=== PATIENT | female | born 1985 | race Caucasian/White ===

== ENCOUNTER 2016-12-14 21:43 | Inpatient (IN) | payer MEDICAID ==
[~2016-12-14] VITALS: Ht 157.5 cm; Wt 81.6 kg
[~2016-12-14 21:43] MED LIST: PREN1TAB62 PO
[2016-12-14 22:06] VITALS: Ht 157.5 cm; Wt 81.6 kg
[2016-12-14] MEDS ORDERED: LACTATED RINGER'S 1,000 ML IV STA (22:06)
[2016-12-14 22:44] LABS: ADD SCAN DIFF NO
[2016-12-14 22:49] LABS: BASOPHILS % 0.2 % (0.0-2.0); EOSINOPHILS % 0.3 % (0.0-7.0); HEMATOCRIT 36.1 % (37.0-47.0); HEMOGLOBIN 11.9 g/dl (12.0-16.0); LYMPHOCYTES # 0.9 10^3/ul (0.8-2.9); LYMPHOCYTES % 9.6 % (15.0-51.0); MEAN CORPUSCULAR HEMOGLOBIN 27.6 pg (29.0-33.0); MEAN CORPUSCULAR VOLUME 83.8 fl (82.0-101.0); MEAN PLATELET VOLUME 10.2 fl (7.4-10.4); MONOCYTE # 0.6 10^3/ul (0.3-0.9); MONOCYTES % 6.2 % (0.0-11.0); NEUTROPHIL # 7.9 10^3/ul (1.6-7.5); NEUTROPHILS % 82.9 % (39.0-77.0); PLATELET COUNT 185 10^3/UL (140-415); RED BLOOD COUNT 4.31 10^6/ul (4.20-5.40); RED CELL DISTRIBUTION WIDTH 13.3 % (11.5-14.5); WHITE BLOOD COUNT 9.5 10^3/ul (4.8-10.8)
[2016-12-14 22:57] LABS: ADD UMIC YES; URINE BILIRUBIN (Dip) NEGATIVE (NEGATIVE); URINE BLOOD (Dip) NEGATIVE (NEGATIVE); URINE COLOR YELLOW (YELLOW); URINE GLUCOSE (Dip) NEGATIVE (NEGATIVE); URINE KETONES (Dip) NEGATIVE (NEGATIVE); URINE LEUKOCYTE ESTERASE (Dip) NEGATIVE (NEGATIVE); URINE NITRITE (Dip) NEGATIVE (NEGATIVE); URINE TOTAL PROTEIN (Dip) 1+ (NEGATIVE); URINE UROBILINOGEN (Dip) 0.2 E.U./dL (0.1-1.0)
[2016-12-14 23:05] LABS: BACTERIA,URINE FEW; SQUAMOUS EPITHELIAL CELL,UR MODERATE; URINE RBCS 0-2 /HPF (0)
[2016-12-14 23:07] LABS: ALBUMIN 3.8 g/dl (3.3-4.9); BILIRUBIN,INDIRECT 0.1 mg/dl (0-1.1); BILIRUBIN,TOTAL 0.1 mg/dl (0.2-1.3); CALCIUM 9.3 mg/dl (8.4-10.2); CREATININE 0.48 mg/dl (0.44-1.00); POTASSIUM 3.2 mmol/L (3.5-5.1); TOTAL PROTEIN 7.6 g/dl (6.1-8.1)
[2016-12-14 23:15] VITALS: BP 141/87; PULSE 120; RESP 18
[2016-12-14] MEDS ORDERED: LACTATED RINGER'S 1,000 ML IV SCH (23:15)
--- NOTE | 2016-12-14 23:30 | RADRPT ---
PROCEDURE: ULTRASOUND OBSTETRICAL CLINICAL INDICATION: 31-year-old female in labor for size and date determination. TECHNIQUE: Multiple sonographic images of the pelvis were obtained. The images were reviewed on a PACS workstation. COMPARISON: No prior studies are available for comparison. FINDINGS: The cervix is closed with a length of 3.6 cm measured transvaginally. There is a single viable intra uterine gestation. Cardiac activity is present with 157 beats per minute. There is a variable prese ntation. Measurements were made in order to determine age. The results are as follows: BPD = 6.15 cm, HC = 21.29 cm, AC = 22.96 cm, FL = 4.45 cm. This yields and estimated gestational ag e of approximately 25 weeks 1 day. The estimated date of delivery is March 28, 2017. The EFW = 862 +/- 129 g (1 lb 14 oz). The GP is 72%. The placenta is right lateral. There is no evidence for an abruption or placenta previa. There is an adequate amount of amniotic fluid with a maximal vertical pocket of 7.5 cm. IMPRESSION: 1. Single viable intrauterine gestation of approximately 25 weeks 1 day. The estimated date of del connor is March 28, 2017. 2. The cervix appears closed with a length of 3.6 cm. .Agapito Chavarria MD, Date Time Electronically viewed and signed by .Agapito Chavarria MD, on 12/14/2016 23:29 .M/
[2016-12-15] MEDS ORDERED: ACETAMINOPHEN 325 MG TAB PO PRN (01:00)
--- NOTE | 2016-12-15 01:22 | HP ---
Date/Time of Note Date/Time of Note DATE: 12/15/16 TIME: : OB - History Hx of Present Chief Complaint: abdominal pain Estimated Due Date: Mar 28, 2017 : 4 Para: 3 Spontaneous : 0 Therapeutic : 0 Care: Good Care Ultrasounds: Normal mid trimester US Obstetrical Complications: None Medical Complications: None Past Family/Social History * Past Medical, Surgical, Family and Obstetric Histories reviewed from chart. OB Admission Exam Vital Signs Vital Signs Vital Signs Date Time Temp Pulse Resp B/P Pulse Ox O2 Delivery O2 Flow Rate FiO2 12/14/16 23:15 97.6 120 18 141/87 Room Air Physical Exam HEENT: WNL Heart: Rhythm Normal Lungs: Clear Abdomen: WNL Extremities: Normal Reflexes: Normal Cervical Dilatation: None Membranes: Intact Heart Rate: 140's Decelerations: No Decelerations Last 72 hours Lab Results CBC & BMP 12/14/16 22:05 Liver Function Test 12/14/16 22:05 Alanine Aminotransferase (ALT/SGPT) 27 Albumin 3.8 Alkaline Phosphatase 123 H Aspartate Amino Transf (AST/SGOT) 25 Direct Bilirubin 0.00 Total Protein 7.6 OB Assessment/Plan Reason for admission: other (R/O preeclampsia) Plan: Other (Admit, 24 hour urine collection monitor BP.) JOSÉ CASTELLON MD Dec 15, 2016 01:22
[2016-12-15] MEDS: LACTATED RINGER'S 1,000 ML IV SCH ×3 (06:08→22:06)
[2016-12-15] MEDS: MULTIVIT/MIN/FOLATE/IRON/PREN TAB PO SCH (09:05)
[2016-12-16 02:21] LABS: SCRET 0.48 mg/dl (0.44-1.00)
[2016-12-16] MEDS: LACTATED RINGER'S 1,000 ML IV SCH ×2 (06:06→13:21)
[2016-12-16] MEDS: MULTIVIT/MIN/FOLATE/IRON/PREN TAB PO SCH (10:02)
--- NOTE | 2016-12-16 14:41 | CONS ---
DATE OF ADMISSION: 12/15/2016 DATE OF CONSULTATION: 12/16/2016 I spoke to the patient, she has been admitted with apparently worsening of her chronic hypertension. Her blood pressures during the hospital stay have not been in the severe range, but they range in the moderate. She denies headache, chest pain, shortness of breath, or change in the vision. She w as diagnosed with chronic hypertension since her last and her last she delivered at term. Platelets, creatinine, AST, ALT are normal. A 24-hour urine for protein shows 480 mg of protein. heart tone is reassuring for the gestational age. There are no contractions. IMPRESSION: Intrauterine with chronic hypertension and superimposed mild preeclampsia giv en the change in the total protein. She is stable and no symptoms. RECOMMENDATIONS: She can be discharged home with bed rest. She has an appointment to come and see us in 2 weeks. I do recommend BPP starting at 28 weeks and then NST twice weekly at 32 weeks, and p reeclampsia precautions are advised. Dictated By: LETICIA NUGENT/SOPHIA Conf#: [id number] DID#: [id number]
--- NOTE | 2016-12-16 18:55 | QN ---
Documentation Comment No complaint Afebrile BP Systolic 150's-170's Strip appropriate for GA Since patient's BP is elevated, will continue to monitor in hospital for now. JOSÉ CASTELLON MD Dec 16, 2016 18:55
[2016-12-17 07:17] LABS: ADD SCAN DIFF NO
[2016-12-17 07:21] LABS: BASOPHILS % 0.3 % (0.0-2.0); EOSINOPHILS # 0.1 10^3/ul (0.0-0.5); EOSINOPHILS % 0.8 % (0.0-7.0); HEMOGLOBIN 9.8 g/dl (12.0-16.0); LYMPHOCYTES # 1.9 10^3/ul (0.8-2.9); MEAN CORPUSCULAR HEMOGLOBIN 27.5 pg (29.0-33.0); MEAN CORPUSCULAR HGB CONC 32.7 g/dl (32.0-37.0); MEAN CORPUSCULAR VOLUME 84.3 fl (82.0-101.0); MEAN PLATELET VOLUME 10.5 fl (7.4-10.4); MONOCYTE # 0.4 10^3/ul (0.3-0.9); MONOCYTES % 6.5 % (0.0-11.0); NEUTROPHIL # 3.9 10^3/ul (1.6-7.5); NEUTROPHILS % 61.9 % (39.0-77.0); PLATELET COUNT 168 10^3/UL (140-415); RED BLOOD COUNT 3.56 10^6/ul (4.20-5.40); RED CELL DISTRIBUTION WIDTH 13.7 % (11.5-14.5); WHITE BLOOD COUNT 6.3 10^3/ul (4.8-10.8)
[2016-12-17 07:35] LABS: ALBUMIN 2.9 g/dl (3.3-4.9); ALBUMIN/GLOBULIN RATIO 1.03; CALCIUM 8.6 mg/dl (8.4-10.2); CREATININE 0.47 mg/dl (0.44-1.00); POTASSIUM 3.1 mmol/L (3.5-5.1); TOTAL PROTEIN 5.7 g/dl (6.1-8.1); URIC ACID 3.7 mg/dl (3.1-7.9)
[2016-12-17] MEDS: MULTIVIT/MIN/FOLATE/IRON/PREN TAB PO SCH (08:55)
[2016-12-17 11:56] LABS: ADD UMIC NO; URINE BILIRUBIN (Dip) NEGATIVE (NEGATIVE); URINE BLOOD (Dip) NEGATIVE (NEGATIVE); URINE COLOR LT. YELLOW (YELLOW); URINE GLUCOSE (Dip) NEGATIVE (NEGATIVE); URINE KETONES (Dip) NEGATIVE (NEGATIVE); URINE LEUKOCYTE ESTERASE (Dip) NEGATIVE (NEGATIVE); URINE NITRITE (Dip) NEGATIVE (NEGATIVE); URINE TOTAL PROTEIN (Dip) NEGATIVE (NEGATIVE); URINE UROBILINOGEN (Dip) 0.2 E.U./dL (0.1-1.0)
--- NOTE | 2016-12-18 06:28 | DS ---
DATE OF ADMISSION: 12/15/2016 DATE OF DISCHARGE: 12/17/2016 ADMITTING DIAGNOSIS: at 25 weeks, chronic hypertension, rule out preeclampsia. HISTORY: A 31-year-old female 4, para 2-1-0-3, estimated date of delivery 03/28/2017, ____ was admitted due to increasing blood pressure. Patient with history of chronic hypertension; pati burton, the patient's blood pressure was noted to be increasing. The patient was admitted on 12/15/2016. The patient had workup with -induced hypertension panel and 24-hour urine collection. Th e results of the 24-hour urine collection total protein was elevated. Perinatology consultation was obtained. Recommendation of perinatologist was to discharge the patient home since the patient has mild preeclampsia. The patient is discharged on 12/17/2013. CONDITION ON DISCHARGE: Stable. DISCHARGE INSTRUCTIONS: Diet regular. Activities as tolerated. MEDICATIONS: Continue with vitamins and ferrous sulfate. FOLLOWUP: In the office in 3 days. FINAL DIAGNOSES: 1. , not delivered. 2. Chronic hypertension. 3. Superimposed preeclampsia. Dictated By: JOSÉ CANALES/SOPHIA Conf#: [id number] DID#: [id number]
== END 2016-12-17 19:43 | disposition home or self-care (01) | DRG 781 ==
LOC: OBT 21:43 → L-D 21:44 → OBT 12-15 01:05 → OBG 12-15 01:05
PROVIDERS: ADMIT Obstetrics & Gynecology; ATTEND Obstetrics & Gynecology
DX: O11.2 Pre-existing hypertension with pre-eclampsia, second trimester (principal); Z3A.25 25 weeks gestation of pregnancy
CPT/HCPCS: 36415; 76815; 76817; 80053; 81001; 81003; 82150; 82575; 83690; 84156; 84560; 85025; 96360; 96361; G0463; J7120

== ENCOUNTER 2017-02-10 12:19 | Inpatient (IN) | payer MEDICAID ==
[~2017-02-10] VITALS: Ht 154.9 cm; Wt 86.2 kg
[2017-02-10 12:42] VITALS: Ht 154.9 cm; Wt 86.2 kg
[2017-02-10 12:43] VITALS: BP 171/82; PULSE 93
[2017-02-10] MEDS ORDERED: LACTATED RINGER'S 1,000 ML IV SCH (13:19)
[2017-02-10 13:52] LABS: ADD UMIC YES; UR ASCORBIC ACID 20 mg/dL (NEGATIVE); UR BACTERIA FEW /HPF (NONE SEEN); UR BILIRUBIN (Dip) NEGATIVE (NEGATIVE); UR BLOOD (Dip) NEGATIVE (NEGATIVE); UR CLARITY SLIGHTLY CLOUDY (CLEAR); UR COLOR YELLOW (YELLOW); UR GLUCOSE (Dip) NEGATIVE (NEGATIVE); UR KETONES (Dip) NEGATIVE (NEGATIVE); UR LEUKOCYTE ESTERASE (Dip) TRACE Leu/ul (NEGATIVE); UR NITRITE (Dip) NEGATIVE (NEGATIVE); UR RBC 0 /HPF (0-5); UR TOTAL PROTEIN (Dip) NEGATIVE (NEGATIVE); UR UROBILINOGEN (Dip) NEGATIVE (NEGATIVE)
[2017-02-10] MEDS ORDERED: GLUCOSE GEL 15 GRAM TUBE PO PRN ×2 (14:30)
[2017-02-10] MEDS ORDERED: DEXTROSE 50% 50 ML SYRINGE IV PRN ×2 (14:30)
[2017-02-10] MEDS ORDERED: GLUCAGON 1 MG INJ IM PRN (14:30)
[2017-02-10] MEDS ORDERED: GLUCOSE GEL 15 GRAM TUBE BUCCAL PRN (14:30)
[2017-02-10 14:57] LABS: ADD SCAN DIFF NO
[2017-02-10 15:01] LABS: BASOPHILS % 0.2 % (0.0-2.0); EOSINOPHILS # 0.1 10^3/ul (0.0-0.5); EOSINOPHILS % 0.6 % (0.0-7.0); HEMOGLOBIN 10.6 g/dl (12.0-16.0); LYMPHOCYTES # 1.9 10^3/ul (0.8-2.9); LYMPHOCYTES % 19.3 % (15.0-51.0); MEAN CORPUSCULAR HGB CONC 34.2 g/dl (32.0-37.0); MEAN PLATELET VOLUME 10.9 fl (7.4-10.4); MONOCYTE # 0.6 10^3/ul (0.3-0.9); MONOCYTES % 6.3 % (0.0-11.0); NEUTROPHIL # 7.2 10^3/ul (1.6-7.5); NEUTROPHILS % 72.8 % (39.0-77.0); PLATELET COUNT 182 10^3/UL (140-415); RED BLOOD COUNT 3.78 10^6/ul (4.20-5.40); RED CELL DISTRIBUTION WIDTH 14.2 % (11.5-14.5)
[2017-02-10 15:19] LABS: INR 0.91; PROTIME 12.3 Sec (12.2-14.2)
[2017-02-10 15:20] LABS: PARTIAL THROMBOPLASTIN TIME 27.1 Sec (25.0-35.0)
[2017-02-10 15:21] LABS: ALBUMIN 3.8 g/dl (3.3-4.9); ALBUMIN/GLOBULIN RATIO 1.26; BILIRUBIN,INDIRECT 0.1 mg/dl (0-1.1); BILIRUBIN,TOTAL 0.1 mg/dl (0.2-1.3); CALCIUM 9.6 mg/dl (8.4-10.2); CREATININE 0.5 mg/dl (0.44-1.00); POTASSIUM 3.6 mmol/L (3.5-5.1); TOTAL PROTEIN 6.8 g/dl (6.1-8.1); URIC ACID 4.6 mg/dl (3.1-7.9)
--- NOTE | 2017-02-10 19:55 | HP ---
DATE OF ADMISSION: 02/10/2017 HISTORY OF PRESENT ILLNESS: A 31-year-old female, 4, para 2-1-0-3, estimated date of delivery 03/28/2017, at 33-weeks' gestation, was seen in the antepartum unit and was noted to have elevated blood pressure. The patient with history of chronic hypertension. The patient's blood pressure was noted to be increasing. The patient denies any headache, visual disturbance or epigastric pain. PAST MEDICAL HISTORY: Chronic hypertension. PAST SURGICAL HISTORY: section and appendectomy. ALLERGIES: NO KNOWN ALLERGIES. COURSE: Significant for gestational diabetes. FAMILY HISTORY: Hypertension. PHYSICAL EXAMINATION VITAL SIGNS: The patient is afebrile. The patient's systolic blood pressures 170s, diastolic 80s. HEAD: Within normal limits NECK: Within normal limits. CHEST: Within normal limits. ABDOMEN: Soft, nontender and gravid. EXTREMITIES: Lower extremities within normal limits. NEUROLOGIC: Within normal limits. IMPRESSION: at 33 weeks. Gestational diabetes, chronic hypertension. Rule out superimposed preeclampsia with severe features. PLAN: Admit. Monitor blood pressure. Continuous monitoring. - induced hypertension panel. A 24-hour urine collection. Dictated By: JOSÉ CANALES/SOPHIA Conf#: [id number] DID#: [id number] SRINIVASA
[2017-02-10] MEDS: ACCU-CHEK XX SCH (20:42)
--- NOTE | 2017-02-10 21:24 | NSTRPT ---
NST Information Datetime Report Generated by CPN: 02/10/2017 21:24 Datetime: 02/10/2017 10:46 NST Information EGA: 33.3 Test Number: 7 Time on Monitor: 02/10/2017 11:02 Time off Monitor: 02/10/2017 11:32 NST Duration (Min): 30 Reason for NST: Diabetes Mellitus; Gestational Hypertension; Other Reason for NST Other: A1DM Test and Monitor Explained: Monitor Explained; Test Explained; Verbalized Understanding Pulse: 97 (Annotations: Data stored by [facility] on behalf of user) Resp: 17 SBP: 151 DBP: 84 Test Evaluation NST Interventions: PO Hydration; Food Given; Reposition Patient Patient States Movement: Present Contraction Frequency: x2, denies FHR Baseline : 140 Variability: Moderate 6-25bpm Accelerations: 15X15 Decelerations: None FHR Category: Category I NST Results: Reactive Comments: Pt to U/S, JULIENNE 13.1cm, cephalic FBS 106 1200-Pt to OB Triage. Electronically Signed By E-Signature: with User ID: [id number], Addendum/Amendment: Patient to Ob triage for elevated BP Datetime: 02/07/2017 10:00 NST Information EGA: 33.0 NST Duration (Min): 53 Datetime: 02/04/2017 14:19 NST Information EGA: 32.4 NST Duration (Min): 49 Datetime: 02/03/2017 08:12 NST Information EGA: 32.3 NST Duration (Min): 72 Datetime: 01/31/2017 08:10 NST Information EGA: 32.0 NST Duration (Min): 35 Datetime: 01/26/2017 13:10 NST Information EGA: 31.2 NST Duration (Min): 25 Datetime: 01/20/2017 09:24 NST Information EGA: 30.3 NST Duration (Min): 28
[2017-02-11] MEDS: ACCU-CHEK XX SCH ×4 (07:30→19:57)
[2017-02-11 14:04] LABS: SCRET 0.5 mg/dl (0.44-1.00)
--- NOTE | 2017-02-11 14:23 | PERINOTE ---
Date/Time of Note Date/Time of Note DATE: 02/11/17 TIME: 14:07 Assessment/Recommendations Other Assessments IUP Chronic Hypertension, with possible superimposed preeclampsia. 24 hour urine result pending. One severe-range BP Gestional diabetes, under fair control on diet and exercise Recommendations: Would await 24 hour urine result. If <300mg, would consider discharging patient with possible labetalol 200mg BID. Would follow up with twice weekly testing until delivery, would plan delivery at 37-38 weeks GA If >300mg, could consider discharge home with follow up as above, would repeat PIH labs weekly and deliver at 37 weeks if the patient remains stable. OB Subjective Free Text/Dictaton Patient with known hypertension on no medication admitted for increasing blood pressure. Patient also known to have gestational diabetes. BP on first visit is 139/90 Highest BP since admission 165/79, 156/91 HD# 2 IUP @ 33W4D Complaints/Overnight events Denies headache, blurry vision Current Medications Current Medications Lactated Ringer's (Lr) 1,000 ml @ 125 mls/hr Q8H IV ; Start 02/10/17 at 13:19; Status Future Hold Diagnostic Test (Pha) (Accu-Chek) 1 ea FBSPP XX Last administered on 02/10/17t 20:42; Admin Dose 1 EA; Start 02/10/17 at 20:05 Miscellaneous Information 1 ea NOTE XX ; Start 02/10/17 at 14:30 Glucose (Glutose) 15 gm Q15M PRN PO DECREASED GLUCOSE; Start 02/10/17 at 14:30 Glucose (Glutose) 22.5 gm Q15M PRN PO DECREASED GLUCOSE; Start 02/10/17 at 14: 30 Dextrose (D50w Syringe) 25 ml Q15M PRN IV DECREASED GLUCOSE; Start 02/10/17 at 14:30 Dextrose (D50w Syringe) 50 ml Q15M PRN IV DECREASED GLUCOSE; Start 02/10/17 at 14:30 Glucagon (Glucagen) 1 mg Q15M PRN IM DECREASED GLUCOSE; Start 02/10/17 at 14:30 Glucose (Glutose) 15 gm Q15M PRN BUCCAL DECREASED GLUCOSE; Start 02/10/17 at 14 :30 Prenat Multivit/ [place]/Iron/Folic Ac ( S) 1 tab DAILY PO ; Start at 09:00 Past Medical History Medical History: no pertinent history Surgical History: appendectomy, other ( delivery x 1) 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 Para: 3 : 4 LMP (Females 10-50): Family History Significant Family History: hypertension Social History Smoker: non-smoker Alcohol: none Drugs: none OB Admission Exam Physical Exam Vitals: Vital Signs Date Time Temp Pulse Resp B/P Pulse Ox O2 Delivery O2 Flow Rate FiO2 02/10/17 12:43 98.2 93 171/82 Heart: Rhythm Normal Lungs: Clear Abdomen: WNL Extremities: Normal Reflexes: Normal Heart Rate: 130's Accelerations: Accelerations Present Decelerations: No Decelerations Varibility: Moderate Contractions on Admission: None Last 72 hourBlood Glucose Bedside Glucose - 72 Hours Test 02/10/17 13:07 02/10/17 20:23 02/11/17 07:36 02/11/17 10:56 Bedside Glucose 100mg/dL (70-220) 132mg/dL (70-220) 113mg/dL (70-220) 111mg/dL (70-220) Last 72 hours Lab Results CBC & BMP 02/10/17 14:45 Liver Function Test 02/10/17 14:45 Alanine Aminotransferase (ALT/SGPT) 26 Albumin 3.8 Alkaline Phosphatase 170 H Aspartate Amino Transf (AST/SGOT) 29 Direct Bilirubin 0.00 Total Protein 6.8 Copies To: CC: JOSÉ CASTELLON MD, MARIE H MD Feb 11, 2017 14:18
[2017-02-11] MEDS: MULTIVIT/MIN/FOLATE/IRON/PREN TAB PO SCH (14:53)
--- NOTE | 2017-02-11 16:30 | RADRPT ---
PROCEDURE: Obstetrical ultrasound CLINICAL INDICATION: PTL CHRONIC PIH TECHNIQUE: Multiple sonographic images of the pelvis were obtained. The images were reviewed on a PACS workstation. COMPARISON: Obstetrical ultrasound from 12/14/2016 FINDINGS: The cervix is closed with a length of 3.5 cm. There is a single viable intrauterine gestation. Cardiac activity is present with 141 beats per minute. There is a vertex presentation. The placenta is right lateral in location. There is no evidence for an abruption or placenta previa. There is a subjectively normal amount of amniotic fluid. Measurements were made in order to determine age. The results are as follows (cm): BPD =8.22 HC =29.02 AC =31.58 FL =6.54 Estimated gestational age by ultrasound of approximately 33 weeks, 4 days. The estimated date of delivery by ultrasound is 03/28/2017. Estimated gestational age by LMP of approximately 33 weeks, 4 days. The estimated date of delivery by LMP is 03/28/2017. EFW = 2417 grams (67th percentile) IMPRESSION: Single viable intrauterine gestation of approximately 33 weeks, 4 days . The estimated date of delivery is 03/28/2017 . Dating by ultrasound is consistent with dating by LMP. Cephalic presentation. Estimated weight is in the 67th percentile. The cervix is closed and measures 3.5 cm in length. RPTAT: EE Physician Tabatha Date Time Electronically viewed and signed by Physician Tabatha on 02/11/2017 16:30 /
[2017-02-11] MEDS ORDERED: LABETALOL 200 MG TAB PO SCH ×2 (21:00)
--- NOTE | 2017-02-11 21:27 | QN ---
Documentation Comment Nocomplaint Afebrile BP elevated Strip Reactive Will start labetalol to control BP. JOSÉ CASTELLON MD Feb 11, 2017 21:27
[2017-02-11] MEDS: LABETALOL 200 MG TAB PO SCH (21:35)
[2017-02-12] MEDS: LABETALOL 200 MG TAB PO SCH ×2 (05:55→14:09)
[2017-02-12 07:05] LABS: ADD SCAN DIFF NO
[2017-02-12 07:19] LABS: BASOPHILS % 0.3 % (0.0-2.0); EOSINOPHILS # 0.1 10^3/ul (0.0-0.5); EOSINOPHILS % 0.7 % (0.0-7.0); HEMATOCRIT 32.8 % (37.0-47.0); HEMOGLOBIN 10.6 g/dl (12.0-16.0); LYMPHOCYTES # 1.9 10^3/ul (0.8-2.9); LYMPHOCYTES % 18.8 % (15.0-51.0); MEAN CORPUSCULAR HEMOGLOBIN 27.2 pg (29.0-33.0); MEAN CORPUSCULAR HGB CONC 32.3 g/dl (32.0-37.0); MEAN CORPUSCULAR VOLUME 84.3 fl (82.0-101.0); MEAN PLATELET VOLUME 11.5 fl (7.4-10.4); MONOCYTE # 0.5 10^3/ul (0.3-0.9); MONOCYTES % 5.4 % (0.0-11.0); NEUTROPHIL # 7.3 10^3/ul (1.6-7.5); NEUTROPHILS % 74.2 % (39.0-77.0); PLATELET COUNT 162 10^3/UL (140-415); RED BLOOD COUNT 3.89 10^6/ul (4.20-5.40); RED CELL DISTRIBUTION WIDTH 14.6 % (11.5-14.5); WHITE BLOOD COUNT 9.8 10^3/ul (4.8-10.8)
[2017-02-12 07:43] LABS: ALBUMIN 3.7 g/dl (3.3-4.9); ALBUMIN/GLOBULIN RATIO 1.27; BILIRUBIN,INDIRECT 0.2 mg/dl (0-1.1); BILIRUBIN,TOTAL 0.2 mg/dl (0.2-1.3); CALCIUM 9.2 mg/dl (8.4-10.2); CREATININE 0.58 mg/dl (0.44-1.00); POTASSIUM 3.5 mmol/L (3.5-5.1); TOTAL PROTEIN 6.6 g/dl (6.1-8.1); URIC ACID 4.9 mg/dl (3.1-7.9)
[2017-02-12] MEDS: ACCU-CHEK XX SCH ×2 (08:35→11:00)
[2017-02-12] MEDS ORDERED: ACETAMINOPHEN 325 MG TAB PO PRN (09:00)
[2017-02-12] MEDS: MULTIVIT/MIN/FOLATE/IRON/PREN TAB PO SCH (09:14)
[2017-02-12] MEDS ORDERED: LABE300T PO (15:15)
--- NOTE | 2017-02-12 15:45 | PERINOTE ---
Date/Time of Note Date/Time of Note DATE: 02/12/17 TIME: 15:39 Assessment/Recommendations Other Assessments Intrauterine at 33 weeks and 5 days of gestation Chronic hypertension Superimposed preeclampsia on chronic hypertension presently without severe features except for blood pressure. Pressure elevations in the context of pre- existing chronic hypertension are of little value in assigning the severity of the preeclampsia. Recommendations: I would treat this patient as preeclampsia without severe features. This could be with home care, with twice weekly testing and weekly evaluations of preeclampsia laboratory values. I would deliver her at 37 weeks of gestation , earlier if there is deterioration in the or maternal condition OB Subjective Free Text/Dictaton Patient with known chronic hypertension, not treated during the , is admitted with increasing blood pressures with a suspicion for superimposed preeclampsia. HD# 3 IUP @ 33W5D Complaints/Overnight events The patient denies headache visual changes abdominal or chest pain. Blood pressure at the time of this consultation was 143/74 maximum blood pressures in the last 24 hours are 172/82 and 163/89. 24-hour urine protein excretion is 480 mg other laboratory evaluation was unremarkable. Ultrasound performed on this admission revealed an estimated weight of 2417 g which was 67th percentile for the gestational age. Current Medications Current Medications Lactated Ringer's (Lr) 1,000 ml @ 125 mls/hr Q8H IV ; Start 02/10/17 at 13:19; Status Future Hold Diagnostic Test (Pha) (Accu-Chek) 1 ea FBSPP XX Last administered on 02/12/17t 11:00; Admin Dose 1 EA; Start 02/10/17 at 20:05 Miscellaneous Information 1 ea NOTE XX ; Start 02/10/17 at 14:30 Glucose (Glutose) 15 gm Q15M PRN PO DECREASED GLUCOSE; Start 02/10/17 at 14:30 Glucose (Glutose) 22.5 gm Q15M PRN PO DECREASED GLUCOSE; Start 02/10/17 at 14: 30 Dextrose (D50w Syringe) 25 ml Q15M PRN IV DECREASED GLUCOSE; Start 02/10/17 at 14:30 Dextrose (D50w Syringe) 50 ml Q15M PRN IV DECREASED GLUCOSE; Start 02/10/17 at 14:30 Glucagon (Glucagen) 1 mg Q15M PRN IM DECREASED GLUCOSE; Start 02/10/17 at 14:30 Glucose (Glutose) 15 gm Q15M PRN BUCCAL DECREASED GLUCOSE; Start 02/10/17 at 14 :30 Prenat Multivit/ [place]/Iron/Folic Ac ( S) 1 tab DAILY PO Last administered on 02/12/17 09:14; Admin Dose 1 TAB; Start 02/11/17 at 09:00 Labetalol HCl (Normodyne) 200 mg Q8 PO Last administered on 02/12/17 14:09; Admin Dose 200 MG; Start 02/11/17 at 22:00 Acetaminophen (Tylenol Tab) 650 mg Q6H PRN PO PAIN AND OR ELEVATED TEMP Last administered on 02/12/17 09:14; Admin Dose 650 MG; Start 02/12/17 at 09:00 OB Admission Exam Physical Exam Vitals: Vital Signs Date Time Temp Pulse Resp B/P Pulse Ox O2 Delivery O2 Flow Rate FiO2 02/10/17 12:43 98.2 93 171/82 Heart Rate: 140's Accelerations: Accelerations Present Decelerations: No Decelerations Varibility: Moderate Contractions on Admission: None Last 72 hourBlood Glucose Bedside Glucose - 72 Hours Test 02/10/17 13:07 02/10/17 20:23 02/11/17 07:36 02/11/17 10:56 Bedside Glucose 100mg/dL (70-220) 132mg/dL (70-220) 113mg/dL (70-220) 111mg/dL (70-220) Test 02/11/17 15:01 02/11/17 17:27 02/11/17 19:41 02/12/17 08:33 Bedside Glucose 111mg/dL (70-220) 117mg/dL (70-220) 131mg/dL (70-220) 121mg/dL (70-220) Test 02/12/17 11:42 Bedside Glucose 126mg/dL (70-220) Last 72 hours Lab Results CBC & BMP 02/10/17 14:45 02/12/17 06:00 Liver Function Test 02/10/17 14:45 02/12/17 06:00 Alanine Aminotransferase (ALT/SGPT) 26 28 Albumin 3.8 3.7 Alkaline Phosphatase 170 H 166 H Aspartate Amino Transf (AST/SGOT) 29 22 Direct Bilirubin 0.00 0.00 Total Protein 6.8 6.6 Copies To: CC: JOSÉ CASTELLON MD, MARIE H MD Feb 12, 2017 15:45
--- NOTE | 2017-02-13 11:13 | DS ---
DATE OF ADMISSION: 02/10/2017 DATE OF DISCHARGE: 02/12/2017 ADMITTING DIAGNOSES: 1. at 33 weeks. 2. Gestational diabetes. 3. Chronic hypertension, severe features. HISTORY: A 31-year-old female 4, para 2-1-0-3 at 33 weeks' gestation. The patient was seen in the antepartum unit and was noted to have elevated blood pressure. The patient was . The patient with history of chronic hypertension. The patient's blood pressure was noted to be increas ing. The patient had a workup with . Perinatology consultation was obtained. Recommendation of perinatologist was to start the patient on labetalol to control the blood pressure. The patient was started on oral labetalol and patient had good response to that and systolic blood pressure impr homero. The patient was reevaluated by perinatologist on ____ and recommendation was to d ischarge the patient home. CONDITION ON DISCHARGE: Stable. DISCHARGE INSTRUCTIONS: 1. Diet: Low salt diet. 2. Activities: Modified bed rest. MEDICATION: Labetalol mg p.o. . FOLLOWUP: The patient will follow up in the office on 02/16/2017. FINAL DIAGNOSES: 1. , not delivered. 2. Chronic hypertension. 3. Superimposed preeclampsia. 4. Gestational diabetes. Dictated By: JOSÉ CASTELLON MD GD/NTS Conf#: [id number] DID#: [id number]
== END 2017-02-12 15:45 | disposition home or self-care (01) | DRG 781 ==
LOC: OBT 12:19 → L-D 12:23 → OBG 13:15 → OBT 13:15 → OBG 13:25
PROVIDERS: ADMIT Obstetrics & Gynecology; ATTEND Obstetrics & Gynecology
DX: O11.3 Pre-existing hypertension with pre-eclampsia, third trimester (principal); O24.419 Gestational diabetes mellitus in pregnancy, unspecified control; Z3A.33 33 weeks gestation of pregnancy
CPT/HCPCS: 76815; 76817; 80053; 81001; 82575; 82962; 84156; 84560; 85025; 85384; 85610; 85730; G0463; J7120

== ENCOUNTER 2017-02-16 15:24 | Inpatient (IN) | payer MEDICAID ==
[~2017-02-16] VITALS: Ht 157.5 cm; Wt 87.7 kg
[~2017-02-16 15:24] MED LIST changes: +LABE300T PO
[2017-02-16] MEDS ORDERED: FERR325C PO (15:33)
[2017-02-16 15:34] VITALS: BP 165/79; PULSE 82; RESP 20; Ht 157.5 cm; Wt 87.7 kg
[2017-02-16 16:29] LABS: ADD UMIC NO; UR ASCORBIC ACID NEGATIVE (NEGATIVE); UR BILIRUBIN (Dip) NEGATIVE (NEGATIVE); UR BLOOD (Dip) NEGATIVE (NEGATIVE); UR CLARITY CLEAR (CLEAR); UR COLOR STRAW (YELLOW); UR GLUCOSE (Dip) NEGATIVE (NEGATIVE); UR KETONES (Dip) NEGATIVE (NEGATIVE); UR LEUKOCYTE ESTERASE (Dip) NEGATIVE Leu/ul (NEGATIVE); UR NITRITE (Dip) NEGATIVE (NEGATIVE); UR SPECIFIC GRAVITY (Dip) 1.008 (1.003-1.030); UR TOTAL PROTEIN (Dip) NEGATIVE (NEGATIVE); UR UROBILINOGEN (Dip) NEGATIVE (NEGATIVE)
[2017-02-16] MEDS ORDERED: LACTATED RINGER'S 1,000 ML IV SCH (16:53)
[2017-02-16] MEDS ORDERED: OXYTOCIN 30 UNITS/LR 500 ML IV PRN (17:00)
[2017-02-16] MEDS ORDERED: MISOPROSTOL 200 MCG TAB PR PRN (17:00)
[2017-02-16] MEDS ORDERED: CEFAZOLIN 2 GM/50 ML (PMX) 50 ML IV SCH (17:00)
[2017-02-16] MEDS ORDERED: CARBOPROST 250 MCG INJ IM PRN (17:00)
[2017-02-16] MEDS ORDERED: OXYTOCIN 30 UNITS/LR 500 ML IV SCH (17:00)
[2017-02-16] MEDS ORDERED: METHYLERGONOVINE 0.2 MG INJ IM PRN (17:00)
[2017-02-16 17:12] LABS: ADD SCAN DIFF NO
[2017-02-16 17:14] LABS: BASOPHILS % 0.2 % (0.0-2.0); EOSINOPHILS # 0.1 10^3/ul (0.0-0.5); HEMATOCRIT 32.2 % (37.0-47.0); HEMOGLOBIN 10.7 g/dl (12.0-16.0); LYMPHOCYTES % 20.4 % (15.0-51.0); MEAN CORPUSCULAR HEMOGLOBIN 27.6 pg (29.0-33.0); MEAN CORPUSCULAR HGB CONC 33.2 g/dl (32.0-37.0); MEAN PLATELET VOLUME 11.6 fl (7.4-10.4); MONOCYTE # 0.6 10^3/ul (0.3-0.9); MONOCYTES % 6.5 % (0.0-11.0); NEUTROPHIL # 6.9 10^3/ul (1.6-7.5); NEUTROPHILS % 71.1 % (39.0-77.0); PLATELET COUNT 196 10^3/UL (140-415); RED BLOOD COUNT 3.88 10^6/ul (4.20-5.40); RED CELL DISTRIBUTION WIDTH 14.6 % (11.5-14.5); WHITE BLOOD COUNT 9.7 10^3/ul (4.8-10.8)
[2017-02-16 17:32] LABS: INR 0.88; PROTIME 11.9 Sec (12.2-14.2); PT RATIO 0.9
[2017-02-16 17:33] LABS: PARTIAL THROMBOPLASTIN TIME 28.5 Sec (25.0-35.0)
[2017-02-16 17:37] LABS: ALBUMIN 3.7 g/dl (3.3-4.9); ALBUMIN/GLOBULIN RATIO 1.19; BILIRUBIN,INDIRECT 0.1 mg/dl (0-1.1); BILIRUBIN,TOTAL 0.1 mg/dl (0.2-1.3); CALCIUM 9.5 mg/dl (8.4-10.2); CREATININE 0.45 mg/dl (0.44-1.00); TOTAL PROTEIN 6.8 g/dl (6.1-8.1); URIC ACID 4.1 mg/dl (3.1-7.9)
[2017-02-16] MEDS ORDERED: MAGNESIUM SULFATE 4 GM/100 ML 100 ML IV ONE (19:00)
[2017-02-16] MEDS ORDERED: ONDANSETRON 4 MG INJ ONE ×2 (19:22→20:41)
[2017-02-16] MEDS ORDERED: CITRIC ACID/SODIUM CITRATE 15 ML CUP ONE (19:22)
[2017-02-16] MEDS ORDERED: FAMOTIDINE 20 MG INJ ONE (19:23)
[2017-02-16] MEDS ORDERED: METOCLOPRAMIDE 10 MG INJ ONE (19:23)
[2017-02-16] MEDS ORDERED: LACTATED RINGER'S 1,000 ML IV ONE (19:38)
[2017-02-16] MEDS: MAGNESIUM SULFATE 20 GM/500 ML 500 ML IV SCH (19:40)
--- NOTE | 2017-02-16 19:56 | HP ---
Date/Time of Note Date/Time of Note DATE: 02/16/17 TIME: 19:50 OB - History Hx of Present Chief Complaint: Elevated BP Estimated Due Date: Mar 28, 2017 : 4 Para: 3 Spontaneous : 0 Therapeutic : 0 Care: Good Care Ultrasounds: Normal mid trimester US Obstetrical Complications: Gestational Diabetes, Pre-eclampsia (sperimposed preeclampsia with severe features) Medical Complications: Cardiovascular (chronic hypertension) Past Family/Social History * Past Medical, Surgical, Family and Obstetric Histories reviewed from chart. GBS Status: Unknown OB Admission Exam Vital Signs Vital Signs BP systolinc in 160's Vital Signs Date Time Temp Pulse Resp B/P Pulse Ox O2 Delivery O2 Flow Rate FiO2 02/16/17 15:34 98.2 82 20 165/79 Room Air Physical Exam HEENT: WNL Heart: Rhythm Normal Lungs: Clear Abdomen: WNL Extremities: Normal Reflexes: Normal Heart Rate: 130's Accelerations: Accelerations Present Decelerations: No Decelerations Varibility: Moderate Last 72 hours Lab Results CBC & BMP 02/16/17 16:30 Liver Function Test 02/16/17 16:30 Alanine Aminotransferase (ALT/SGPT) 28 Albumin 3.7 Alkaline Phosphatase 185 H Aspartate Amino Transf (AST/SGOT) 29 Direct Bilirubin 0.00 Total Protein 6.8 OB Assessment/Plan Reason for admission: other ( 34 weeks and 2 days, Previous , chronic hypertension with superimposed preeclampsia with severe range BP) Plan: Section JOSÉ CASTELLON MD Feb 16, 2017 19:55
[2017-02-16] MEDS ORDERED: FENTAnyl 50 MCG/ML VIAL ONE (19:58)
[2017-02-16] MEDS ORDERED: morphine SULFATE/PF (10 MG/10 ML) INJ ONE (19:58)
[2017-02-16] MEDS ORDERED: CITRIC ACID/SODIUM CITRATE 15 ML CUP PO ONE (20:00)
[2017-02-16] MEDS ORDERED: METOCLOPRAMIDE 10 MG INJ IV ONE (20:00)
[2017-02-16] MEDS ORDERED: FAMOTIDINE 20 MG INJ IV ONE (20:00)
[2017-02-16] MEDS ORDERED: PHENYLephrine (100 MCG/ML) 5ML SYG ONE (20:37)
[2017-02-16] MEDS ORDERED: HYDROmorphONE 1 MG/ML SYG IV PRN ×2 (21:00)
[2017-02-16] MEDS ORDERED: PROCHLORPERAZINE 10 MG INJ IV PRN ×2 (21:00)
[2017-02-16] MEDS ORDERED: NALOXONE (0.4 MG/ML) INJ IV PRN (21:00)
[2017-02-16] MEDS ORDERED: DIPHENHYDRAMINE 50 MG INJ IV PRN ×2 (21:00)
[2017-02-16] MEDS ORDERED: MEPERIDINE 25 MG INJ IV PRN (21:00)
[2017-02-16] MEDS ORDERED: KETOROLAC 30 MG INJ IV PRN ×2 (21:00)
[2017-02-16] MEDS ORDERED: ONDANSETRON 4 MG INJ IV PRN ×2 (21:00)
[2017-02-16] MEDS ORDERED: HYDROmorphONE (0.2 MG/ML) 10ML SYG IV PRN (21:00)
[2017-02-16] MEDS ORDERED: ZOLPIDEM 5 MG TAB PO PRN (21:00)
[2017-02-16] MEDS ORDERED: FENTAnyl 50 MCG/ML VIAL IV PRN (21:00)
[2017-02-16] MEDS ORDERED: OXYTOCIN 30 UNITS/LR 500 ML IV ONE ×2 (21:15)
--- NOTE | 2017-02-16 21:26 | OPR ---
Date/Time of Note Date/Time of Note DATE: 02/16/17 TIME: 21:22 Operative Report Preoperative Diagnosis 34 weeks and 2 days, previous , chronic hypertension, superimposed preeclampsia with severe features GDM Postoperative Diagnosis same and omental adhesions Operation/Procedure Performed Repeat low transverse and lysis of adhesions Surgeon: JOSÉ CASTELLON MD assistant construction superintendent: ALEX BHATIA MD Anesthesia: spinal Estimated Blood Loss: other (600 ML) Specimens placenta Complications: None JOSÉ CASTELLON MD Feb 16, 2017 21:26
[2017-02-17] VITALS (21 sets, daily range): BP systolic 106–153; BP diastolic 54–75; PULSE 80–105; RESP 16–21
[2017-02-17] MEDS ORDERED: HYDROmorphONE 1 MG/ML SYG IV PRN ×2
[2017-02-17] MEDS ORDERED: LANOLIN 7 GM TUBE TOP PRN (00:30)
[2017-02-17] MEDS ORDERED: CARBOPROST 250 MCG INJ IM PRN (00:30)
[2017-02-17] MEDS ORDERED: MISOPROSTOL 200 MCG TAB PR PRN (00:30)
[2017-02-17] MEDS ORDERED: OXYTOCIN 30 UNITS/LR 500 ML IV PRN (00:30)
[2017-02-17] MEDS: OXYTOCIN 30 UNITS/LR 500 ML IV SCH ×2 (04:18→16:16)
[2017-02-17] MEDS: MAGNESIUM SULFATE 20 GM/500 ML 500 ML IV SCH ×2 (05:24→15:53)
[2017-02-17 08:08] LABS: ADD SCAN DIFF NO
[2017-02-17 08:15] LABS: BASOPHILS % 0.3 % (0.0-2.0); EOSINOPHILS % 0.3 % (0.0-7.0); HEMATOCRIT 32.4 % (37.0-47.0); HEMOGLOBIN 10.4 g/dl (12.0-16.0); LYMPHOCYTES # 1.5 10^3/ul (0.8-2.9); LYMPHOCYTES % 12.6 % (15.0-51.0); MEAN CORPUSCULAR HEMOGLOBIN 26.5 pg (29.0-33.0); MEAN CORPUSCULAR HGB CONC 32.1 g/dl (32.0-37.0); MEAN CORPUSCULAR VOLUME 82.7 fl (82.0-101.0); MEAN PLATELET VOLUME 11.2 fl (7.4-10.4); MONOCYTE # 0.6 10^3/ul (0.3-0.9); MONOCYTES % 5.2 % (0.0-11.0); NEUTROPHIL # 9.3 10^3/ul (1.6-7.5); PLATELET COUNT 181 10^3/UL (140-415); RED BLOOD COUNT 3.92 10^6/ul (4.20-5.40); RED CELL DISTRIBUTION WIDTH 14.7 % (11.5-14.5); WHITE BLOOD COUNT 11.5 10^3/ul (4.8-10.8)
[2017-02-17] MEDS: LACTATED RINGER'S 1,000 ML IV SCH ×3 (08:23→16:23)
[2017-02-17] MEDS: SENNA/DOCUSATE NA (8.6MG/50MG) TAB PO SCH ×2 (09:41→22:12)
[2017-02-17] MEDS: LABETALOL 100 MG TAB PO SCH ×3 (09:41→22:13)
--- NOTE | 2017-02-17 13:13 | QN ---
Documentation Comment No complaint Afebrile VSS Abdomen soft POD #1 Stable D/C magnesium sulfate after 24 hours. JOSÉ CASTELLON MD Feb 17, 2017 13:13
[2017-02-17] MEDS ORDERED: OXYCODONE/ACETAMINOPHEN (5/325) TAB PO PRN ×2 (20:14)
[2017-02-17] MEDS: IBUPROFEN 800 MG TAB PO SCH (22:12)
[2017-02-18] VITALS (7 sets, daily range): BP systolic 120–150; BP diastolic 62–87; PULSE 72–81; RESP 16–20
[2017-02-18] MEDS: LACTATED RINGER'S 1,000 ML IV SCH (00:23)
[2017-02-18] MEDS: IBUPROFEN 800 MG TAB PO SCH ×3 (05:39→21:46)
[2017-02-18] MEDS: SENNA/DOCUSATE NA (8.6MG/50MG) TAB PO SCH ×2 (09:15→21:46)
[2017-02-18] MEDS: LABETALOL 100 MG TAB PO SCH ×3 (09:16→21:46)
[2017-02-18 12:03] LABS: RUBELLA ANTIBODY - IGG 2.75 index
--- NOTE | 2017-02-18 19:38 | QN ---
Documentation Comment No complaint Afebrile VSS Abdomen soft Stable Continue present care. JOSÉ CASTELLON MD Feb 18, 2017 19:38
[2017-02-19 04:45] VITALS: BP 138/80; PULSE 75; RESP 20
[2017-02-19] MEDS: IBUPROFEN 800 MG TAB PO SCH ×2 (05:50→13:30)
[2017-02-19 07:57] VITALS: BP 146/82; PULSE 78; RESP 18
[2017-02-19] MEDS ORDERED: DIPHTH/TET/ACEL PERTUSS (ADULT) 0.5 ML VIAL IM* ONE (09:00)
[2017-02-19] MEDS: LABETALOL 100 MG TAB PO SCH ×2 (09:25→13:30)
[2017-02-19] MEDS: SENNA/DOCUSATE NA (8.6MG/50MG) TAB PO SCH (09:25)
--- NOTE | 2017-02-19 14:02 | PD.PPDC ---
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
--- NOTE | 2017-02-19 14:07 | DS ---
Date/Time of Note Date/Time of Note DATE: 02/19/17 TIME: 14:04 Discharge Summary Admission/Discharge Info Admit Date/Time Feb 16, 2017 at 16:00 Discharge Date/Time February 19, 2017 at 1400 Discharge Diagnosis Post date 3 Patient Condition: Good Procedures Hx of Present Illness complicated with hypertension Hospital Course Satisfactory uneventful Home Meds Reported Medications Ferrous Sulfate (Iron) 325 Mg Capsule.er, 325 MG PO DAILY, CAP 02/16/17 Labetalol Hcl* (Labetalol Hcl*) 300 Mg Tablet, 300 MG PO TID, TAB 02/12/17 Vit-Iron Fumarate-FA ( Vitamin Tablet) 1 Each Tablet, 1 TAB PO DAILY, TAB 05/08/14 Follow-up Plan Appointment clinic in 4 days for and blood pressure check Primary Care Provider Care Physician No Primary Time spent on discharge: < 30 minutes TEMO VILCHIS MD Feb 19, 2017 14:07
[2017-02-19 16:00] VITALS: BP 152/82; PULSE 75; RESP 20
--- NOTE | 2017-02-22 01:20 | NSTRPT ---
NST Information Datetime Report Generated by CPN: 02/22/2017 01:19 Datetime: 02/16/2017 13:25 NST Information EGA: 34.2 Test Number: 9 Time on Monitor: 02/16/2017 13:33 Time off Monitor: 02/16/2017 15:49 NST Duration (Min): 136 Reason for NST: Chronic Hypertension; Diabetes Mellitus; Gestational Hypertension; Other Reason for NST Other: A1DM Test and Monitor Explained: Monitor Explained; Test Explained; Verbalized Understanding; Breastfee ding Info Given Pulse: 83 Resp: 18 SBP: 160 DBP: 74 Test Evaluation NST Interventions: Reposition Patient Patient States Movement: Present Contraction Frequency: none FHR Baseline : 140 Variability: Moderate 6-25bpm Accelerations: 15X15 FHR Category: Category I NST Results: Reactive Comments: PT TO U/S. JULIENNE 9.9cm.CEPHALIC. FBS 102. Report given to Dr. Arnold. Pt to OB-TRG for El evated BP. Explained to Pt plan of care. F/U NST appointment given. kick Count instructions. r eivewed. pt states understanding. Electronically Signed By E-Signature: with User ID: [id number] Datetime: 02/14/2017 13:05 NST Information EGA: 34.0 NST Duration (Min): 91 Datetime: 02/10/2017 10:46 NST Information EGA: 33.3 NST Duration (Min): 30 Datetime: 02/07/2017 10:00 NST Information EGA: 33.0 NST Duration (Min): 53 Datetime: 02/04/2017 14:19 NST Information EGA: 32.4 NST Duration (Min): 49 Datetime: 02/03/2017 08:12 NST Information EGA: 32.3 NST Duration (Min): 72 Datetime: 01/31/2017 08:10 NST Information EGA: 32.0 NST Duration (Min): 35 Datetime: 01/26/2017 13:10 NST Information EGA: 31.2 NST Duration (Min): 25 Datetime: 01/20/2017 09:24 NST Information EGA: 30.3 NST Duration (Min): 28
== END 2017-02-19 17:30 | disposition home or self-care (01) | DRG 766 ==
LOC: OBT 15:24 → L-D 15:25 → OBT 16:00 → L-D 16:00 → PP1 23:55
PROVIDERS: ADMIT Obstetrics & Gynecology; ATTEND Obstetrics & Gynecology
PROC: 10D00Z1 Extraction of Products of Conception, Low, Open Approach (ICD-10-PCS; principal; 2017-02-16 20:00)
DX: O11.4 Pre-existing hypertension with pre-eclampsia, complicating childbirth (principal); I10 Essential (primary) hypertension; Z3A.34 34 weeks gestation of pregnancy; Z37.0 Single live birth; O24.429 Gestational diabetes mellitus in childbirth, unspecified control; O34.211 Maternal care for low transverse scar from previous cesarean delivery
CPT/HCPCS: 80053; 81003; 83735; 84560; 85025; 85610; 85730; 86592; 86762; 86850; 86900; 86901; 87340; 88307; 90715; 94760; 99464; G0463; J0690; J1170; J1885; J2274; J2370; J2405; J2590; J2765; J3010; J3475; J7120